=== PATIENT | male | born 2000 | race Caucasian/White ===

== ENCOUNTER 2018-02-23 13:30 | Emergency (ER) | payer BC ==
--- NOTE | 2018-02-23 15:31 | RAD REPORT ---
EXAM DESCRIPTION: RAD - Chest Single View - 02/23/2018 3:26 pm CLINICAL HISTORY: Pneumonia Chest pain. COMPARISON: No comparisons FINDINGS: Portable technique limits examination quality. The lungs are grossly clear. The heart is normal in size. No displaced fractures. IMPRESSION: No acute intrathoracic process suspected.
[2018-02-23 15:36] LABS: Absolute Lymphocytes (CBC) 1.9 K/uL (0.7-4.9); Absolute Monocytes 0.7 K/uL (0.1-1.3); Absolute Neutrophil 6.3 K/uL (1.8-8.0); Basophils % 0.9 % (0-1.3); Eosinophils % 1.5 % (0-4.4); Hematocrit 48.2 % (39.6-49.0); Lymphocytes % 21.1 % (15.3-44.8); MCH 27.5 pg (27.0-35.0); MCV 81.7 fL (80-100); MPV 9.9 fL (7.6-11.3); Monocytes % 7.9 % (3.3-12.3); RBC Red Blood Cell Count 5.91 M/uL (4.33-5.43)
[2018-02-23 15:57] LABS: BUN Blood Urea Nitrogen 16 mg/dL (7-18); Bicarbonate 28 mmol/L (21-32); Glucose Level 92 mg/dL (74-106); Magnesium 2.2 mg/dL (1.8-2.4); NT PRO-BNP 63 pg/mL (<125); Potassium 4.4 mmol/L (3.5-5.1); Sodium Level 137 mmol/L (136-145); Troponin (Emerg Dept Use Only) < 0.02 ng/mL (0.0-0.045)
--- NOTE | 2018-02-23 17:17 | ER ---
Nurse's Notes [facility] Name: Km Correa Age: 17 yrs Sex: Male : 2000 Arrival Date: 02/23/2018 Time: 13:31 Bed 27 Private MD: Kae De La Cruz Diagnosis: Chest pain, unspecified-musculoskeletal Presentation: 02/23 13:30 Presenting complaint: Patient states: right sided chest pain that is okay at rest but tl3 goes to a ten with movement, right shoulder pain as well. Pt was spraying for mosquitos yesterday with a professional strength pesticide. Transition of care: patient was not received from another setting of care. Onset of symptoms. Onset of symptoms was February 23, 2018. Risk Assessment: Do you want to hurt yourself or someone else? Patient reports no desire to harm self or others. Initial Sepsis Screen: Does the patient meet any 2 criteria? No. Patient's initial sepsis screen is negative. Does the patient have a suspected source of infection? No. Patient's initial sepsis screen is negative. Care prior to arrival: None. 13:30 Method Of Arrival: Ambulatory tl3 13:30 Acuity: SAMEER 3 tl3 Triage Assessment: 14:54 General: Appears uncomfortable, obese, well groomed, well developed, well nourished, tl3 Behavior is calm, cooperative, appropriate for age. Pain: Complains of pain in right sided chest and shoulder pain. EENT: No signs and/or symptoms were reported regarding the EENT system. Neuro: Level of Consciousness is awake, alert, obeys commands, Oriented to person, place, time, situation, Appropriate for age. Cardiovascular: Heart tones S1 S2 present Patient's skin is warm and dry. Respiratory: Airway is patent Respiratory effort is even, unlabored, Respiratory pattern is regular, symmetrical, Breath sounds are clear bilaterally. GI: No signs and/or symptoms were reported involving the gastrointestinal system. : No signs and/or symptoms were reported regarding the genitourinary system. Derm: No signs and/or symptoms reported regarding the dermatologic system. Musculoskeletal: No signs and/or symptoms reported regarding the musculoskeletal system. Historical: - Allergies: 14:54 No Known Allergies; tl3 - Immunization history:: Adult Immunizations Adult Immunizations up to date. - Social history:: Smoking status: Patient/guardian denies using tobacco, never smoked. - Ebola Screening: : No symptoms or risks identified at this time. Screenin:09 Abuse screen: Denies threats or abuse. Denies injuries from another. Nutritional mg2 screening: No deficits noted. Tuberculosis screening: No symptoms or risk factors identified. Fall Risk IV access (20 points). Assessment: 14:58 Reassessment: No changes from previously documented assessment. no needs at this time. tl3 15:12 General: Appears in no apparent distress. comfortable, Behavior is calm, cooperative. mg2 Pain: Complains of pain in chest Pain does not radiate. Pain Quality of pain is described as aching. Neuro: Level of Consciousness is awake, alert, obeys commands, Oriented to person, place, time, situation, Appropriate for age. Cardiovascular: Capillary refill < 3 seconds Patient's skin is warm and dry. Respiratory: Airway is patent Respiratory effort is even, unlabored, Respiratory pattern is regular, symmetrical. GI: No signs and/or symptoms were reported involving the gastrointestinal system. : No signs and/or symptoms were reported regarding the genitourinary system. EENT: No signs and/or symptoms were reported regarding the EENT system. Derm: Skin is intact, Skin is pink, warm \T\ dry. normal. Musculoskeletal: Circulation, motion, and sensation intact. 17:29 Reassessment: Patient appears in no apparent distress at this time. Patient and/or mg2 family updated on plan of care and expected duration. Pain level reassessed. Patient is alert, oriented x 3, equal unlabored respirations, skin warm/dry/pink. Vital Signs: 14:54 BP 111 / 67; Pulse 86; Resp 18; Temp 98.1; Pulse Ox 98% ; Weight 125 kg; Height 5 ft. tl3 10 in. (177.80 cm); 14:58 BP 120 / 72; Pulse 78; Resp 18; Pulse Ox 99% on R/A; tl3 15:52 BP 123 / 73; Pulse 72; Resp 18; Pulse Ox 100% on R/A; mg2 17:29 BP 123 / 78; Pulse 78; Resp 18; Pulse Ox 100% on R/A; Pain 2/10; mg2 14:54 Body Mass Index 39.54 (125.00 kg, 177.80 cm) tl3 ED Course: 13:31 Patient arrived in ED. 13:31 Kae De La Cruz MD is Private Physician. ch 14:08 Skye Ventura FNP-C is [facility]. kb 14:08 Edy Conde MD is Attending Physician. kb 14:51 Amena Maravilla, RN is Primary Nurse. tl3 14:53 Triage completed. tl3 14:54 Arm band placed on right wrist. tl3 15:02 EKG done, by operations and maintenance technician. reviewed by Skye MCCLAIN. sm3 15:12 Patient has correct armband on for positive identification. monitoring engineer on. Pulse mg2 ox on. NIBP on. Door closed. Noise minimized. 15:12 No provider procedures requiring assistance completed. Inserted saline lock: 20 gauge mg2 in right antecubital area, using aseptic technique. Blood collected. 15:21 X-ray completed. Portable x-ray completed in exam room. Patient tolerated procedure ag1 well. 17:29 IV discontinued, intact, bleeding controlled, No redness/swelling at site. Pressure mg2 dressing applied. Administered Medications: No medications were administered Outcome: 17:17 Discharge ordered by MD. kb 17:29 Discharged to home ambulatory, with family. mg2 17:29 Condition: stable 17:29 Discharge instructions given to patient, family, Instructed on discharge instructions, follow up and referral plans. medication usage, Demonstrated understanding of instructions, follow-up care, medications, Prescriptions given X 1. 17:30 Patient left the ED. mg2 Signatures: Skye Ventura FNP-C FNP-Ckb Hammond, Christina, RN RN Nova Peters ag1 Amena Maravilla, RN RN tl3 Maximus Kay RN RN mg2 Yaima Hurley sm3 Corrections: (The following items were deleted from the chart) 14:55 13:30 Presenting complaint: Patient states: right sided chest pain that is okay at rest tl3 but goes to a ten with movement, right shoulder pain as well tl3 14:55 13:30 Initial Sepsis Screen: Does the patient meet any 2 criteria? No. Patient's tl3 initial sepsis screen is negative. Does the patient have a suspected source of infection? No. Patient's initial sepsis screen is negative. tl3
--- NOTE | 2018-02-23 17:17 | EDPHYS ---
Physician Documentation [facility] Name: Km Correa Age: 17 yrs Sex: Male : 2000 Arrival Date: 02/23/2018 Time: 13:31 Bed 27 Private MD: Kae De La Cruz ED Physician Edy Conde HPI: 02/23 17:20 This 17 yrs old Male presents to ER via Ambulatory with complaints of Chest kb Congestion. 17:20 The patient or guardian reports chest pain that is located primarily in the anterior kb chest wall, right. The pain radiates to the right arm. Associated signs and symptoms: The patient has no apparent associated signs or symptoms. The chest pain is described as aching. Duration: The patient or guardian reports a single episode. Modifying factors: the symptoms are aggravated by movement. Severity of pain: At its worst the pain was moderate in the emergency department the pain is unchanged. The patient has not experienced similar symptoms in the past. The patient has not recently seen a physician. Historical: - Allergies: 14:54 No Known Allergies; tl3 - Immunization history:: Adult Immunizations Adult Immunizations up to date. - Social history:: Smoking status: Patient/guardian denies using tobacco, never smoked. - Ebola Screening: : No symptoms or risks identified at this time. ROS: 17:19 Constitutional: Negative for fever, chills, and weight loss, Respiratory: Negative for kb shortness of breath, cough, wheezing, and pleuritic chest pain, Abdomen/GI: Negative for abdominal pain, nausea, vomiting, diarrhea, and constipation, Back: Negative for injury and pain, : Negative for injury, bleeding, discharge, and swelling, MS/Extremity: Negative for injury and deformity, Skin: Negative for injury, rash, and discoloration, Neuro: Negative for headache, weakness, numbness, tingling, and seizure. 17:19 Cardiovascular: Positive for chest pain, with movement, of the anterior aspect of right upper chest, Negative for edema, orthopnea, palpitations, paroxysmal nocturnal dyspnea. Exam: 17:19 Constitutional: This is a well developed, well nourished patient who is awake, alert, kb and in no acute distress. Head/Face: Normocephalic, atraumatic. Chest/axilla: Normal chest wall appearance and motion. Nontender with no deformity. No lesions are appreciated. Cardiovascular: Regular rate and rhythm with a normal S1 and S2. No gallops, murmurs, or rubs. Normal PMI, no JVD. No pulse deficits. Respiratory: Lungs have equal breath sounds bilaterally, clear to auscultation and percussion. No rales, rhonchi or wheezes noted. No increased work of breathing, no retractions or nasal flaring. Abdomen/GI: Soft, non-tender, with normal bowel sounds. No distension or tympany. No guarding or rebound. No evidence of tenderness throughout. Skin: Warm, dry with normal turgor. Normal color with no rashes, no lesions, and no evidence of cellulitis. MS/ Extremity: Pulses equal, no cyanosis. Neurovascular intact. Full, normal range of motion. Neuro: Awake and alert, GCS 15, oriented to person, place, time, and situation. Cranial nerves II-XII grossly intact. Motor strength 5/5 in all extremities. Sensory grossly intact. Cerebellar exam normal. Normal gait. Vital Signs: 14:54 BP 111 / 67; Pulse 86; Resp 18; Temp 98.1; Pulse Ox 98% ; Weight 125 kg; Height 5 ft. tl3 10 in. (177.80 cm); 14:58 BP 120 / 72; Pulse 78; Resp 18; Pulse Ox 99% on R/A; tl3 15:52 BP 123 / 73; Pulse 72; Resp 18; Pulse Ox 100% on R/A; mg2 17:29 BP 123 / 78; Pulse 78; Resp 18; Pulse Ox 100% on R/A; Pain 2/10; mg2 14:54 Body Mass Index 39.54 (125.00 kg, 177.80 cm) tl3 MDM: 14:08 Patient medically screened. kb 17:20 Data reviewed: vital signs, nurses notes. Data interpreted: Pulse oximetry: on room air kb is 100 %. Interpretation: normal. Counseling: I had a detailed discussion with the patient and/or guardian regarding: the historical points, exam findings, and any diagnostic results supporting the discharge/admit diagnosis, lab results, radiology results, the need for outpatient follow up, a family practitioner, to return to the emergency department if symptoms worsen or persist or if there are any questions or concerns that arise at home. 02/23 14:23 Order name: Basic Metabolic Panel kb 02/23 14:23 Order name: CBC with Diff kb 02/23 14:23 Order name: Magnesium kb 02/23 14:23 Order name: NT PRO-BNP kb 02/23 14:23 Order name: Troponin (emerg Dept Use Only) kb 02/23 15:45 Order name: CBC with Automated Diff; Complete Time: 15:50 EDMS 02/23 14:23 Order name: XRAY Chest (1 view) kb 02/23 14:23 Order name: Cardiac monitoring; Complete Time: 15:02 kb 02/23 15:41 Order name: RAD; Complete Time: 15:44 EDMS 02/23 15:57 Order name: Basic Metabolic Panel; Complete Time: 16:01 EDMS 02/23 15:57 Order name: Troponin (Emerg Dept Use Only); Complete Time: 16:01 EDMS 02/23 15:57 Order name: NT PRO-BNP; Complete Time: 16:01 EDMS 02/23 15:58 Order name: Magnesium; Complete Time: 16:01 EDMS 02/23 14:23 Order name: EKG - Nurse/Tech; Complete Time: 15:02 kb 02/23 14:23 Order name: IV Saline Lock; Complete Time: 15:02 kb 02/23 14:23 Order name: Labs collected and sent; Complete Time: 15:02 kb 02/23 14:23 Order name: O2 Per Protocol; Complete Time: 15:02 kb 02/23 14:23 Order name: O2 Sat Monitoring; Complete Time: 15:02 kb Administered Medications: No medications were administered Disposition: 17:57 Co-signature as Attending Physician, Edy Conde MD. rn Disposition: 02/23/18 17:17 Discharged to Home. Impression: Chest pain, unspecified - musculoskeletal. - Condition is Stable. - Discharge Instructions: Chest Wall Pain, [id number], Nonspecific Chest Pain, [id number]. - Prescriptions for Cyclobenzaprine 10 mg Oral Tablet - take 1 tablet by ORAL route every 8 hours As needed; 21 tablet. - Medication Reconciliation Form, Thank You Letter, Antibiotic Education, Prescription Opioid Use form. - Follow up: Emergency Department; When: As needed; Reason: Worsening of condition. Follow up: Private Physician; When: 2 - 3 days; Reason: Recheck today's complaints, Continuance of care, Re-evaluation by your physician. Signatures: Dispatcher [employer] EDSkye Menon, PALEOLOGIST-C PALEOLOGIST-Ckb Edy Conde MD MD rn Lowrey, Tammy RN RN tl3 Maximus Kay, RN RN mg2 Corrections: (The following items were deleted from the chart) 17:30 17:17 02/23/2018 17:17 Discharged to Home. Impression: Chest pain, unspecified - mg2 musculoskeletal. Condition is Stable. Forms are Medication Reconciliation Form, Thank You Letter, Antibiotic Education, Prescription Opioid Use. Follow up: Emergency Department; When: As needed; Reason: Worsening of condition. Follow up: Private Physician; When: 2 - 3 days; Reason: Recheck today's complaints, Continuance of care, Re-evaluation by your physician. kb
--- NOTE | 2018-02-25 06:59 | EKG ---
Test Date: 2018-02-23 Test Time: 14:56:21 Leak Gang Supervisor: YULIA MEASUREMENT RESULTS: Intervals: Rate: 69 FL: 150 QRSD: 98 QT: 372 QTc: 398 [place]: P: -4 FL: 150 QRS: -11 T: -8 INTERPRETIVE STATEMENTS: Sinus rhythm with marked sinus arrhythmia Minimal voltage criteria for LVH, may be normal variant Borderline ECG Compared to ECG 02/14/2014 14:50:01 Left ventricular hypertrophy now present Sinus bradycardia no longer present Left bundle-branch block no longer present Electronically Signed On 02-25-18 06:55:23 CDT by Bernardo Carey
== END 2018-02-23 17:30 | disposition home or self-care (01) ==
LOC: ER 13:30
DX: R07.89 Other chest pain (principal)
CPT/HCPCS: 36415; 71045; 80048; 83735; 83880; 84484; 85025; 93005; 99284

== ENCOUNTER 2019-08-21 05:06 | Emergency (ER) | payer BC ==
--- NOTE | 2019-08-21 06:24 | EDPHYS ---
Physician Documentation [facility] Name: Km Correa Age: 19 yrs Sex: Male : 2000 Arrival Date: 08/21/2019 Time: 05:07 Bed 5 Private MD: ED Physician Valentino Mott HPI: 08/20 06:05 This 19 yrs old Male presents to ER via Ambulatory with complaints of tw4 Abdominal Pain, Congestion. 06:05 The patient or guardian reports cough. Onset: The symptoms/episode began/occurred tw4 today. Severity of symptoms: At their worst the symptoms were moderate, in the emergency department the symptoms are unchanged. The patient has not experienced similar symptoms in the past. Historical: - Allergies: 05:15 No Known Allergies; rr5 - Home Meds: 05:15 None [Active]; rr5 - PMHx: 05:15 None; rr5 - PSHx: 05:15 None; rr5 - Immunization history:: Adult Immunizations up to date. - Social history:: Smoking status: unknown Patient uses alcohol, but reports only rare drinking. Patient/guardian denies using street drugs. ROS: 06:05 Back: Negative for injury and pain, MS/Extremity: Negative for injury and deformity, tw4 Skin: Negative for injury, rash, and discoloration. 06:05 Constitutional: Positive for body aches, malaise. 06:05 Cardiovascular: Positive for 06:05 Respiratory: Positive for cough. 06:05 Abdomen/GI: Positive for abdominal pain. Exam: 06:05 Constitutional: This is a well developed, well nourished patient who is awake, alert, tw4 and in no acute distress. Head/Face: Normocephalic, atraumatic. Chest/axilla: Normal chest wall appearance and motion. Nontender with no deformity. No lesions are appreciated. Cardiovascular: Regular rate and rhythm with a normal S1 and S2. No gallops, murmurs, or rubs. Normal PMI, no JVD. No pulse deficits. Respiratory: Lungs have equal breath sounds bilaterally, clear to auscultation and percussion. No rales, rhonchi or wheezes noted. No increased work of breathing, no retractions or nasal flaring. Back: No spinal tenderness. No costovertebral tenderness. Full range of motion. MS/ Extremity: Pulses equal, no cyanosis. Neurovascular intact. Full, normal range of motion. Neuro: Awake and alert, GCS 15, oriented to person, place, time, and situation. Cranial nerves II-XII grossly intact. Motor strength 5/5 in all extremities. Sensory grossly intact. Cerebellar exam normal. Normal gait. 06:05 Abdomen/GI: Inspection: abdomen appears normal, Bowel sounds: normal, Palpation: mild abdominal tenderness, in the epigastric area. Vital Signs: 05:15 BP 135 / 64; Pulse 62; Resp 19; Temp 98.2; Pulse Ox 99% ; Weight 129.27 kg; Height 5 rr5 ft. 11 in. (180.34 cm); Pain 5/10; 06:30 BP 116 / 55; Pulse 64; Resp 18 S; Pulse Ox 99% on R/A; bb 05:15 Body Mass Index 39.75 (129.27 kg, 180.34 cm) rr5 MDM: 05:13 Patient medically screened. tw4 06:22 Differential Diagnosis: Obstructed Airway Bronchitis Influenza. Data reviewed: vital tw4 signs, nurses notes. Data interpreted: Pulse oximetry: Interpretation: normal. Counseling: I had a detailed discussion with the patient and/or guardian regarding: the historical points, exam findings, and any diagnostic results supporting the discharge/admit diagnosis. Special discussion: I discussed with the patient/guardian in detail that at this point there is no indication for admission to the hospital. It is understood, however, that if the symptoms persist or worsen the patient needs to return immediately for re-evaluation. 08/20 05:32 Order name: Flu; Complete Time: 06:22 tw4 08/20 06:22 Interpretation: Within normal limits. tw4 08/20 05:32 Order name: Strep; Complete Time: 06:10 tw4 08/20 06:10 Interpretation: Within normal limits. tw4 08/20 06:09 Order name: Throat Culture EDMS Administered Medications: No medications were administered Disposition: 08/21/19 06:23 Discharged to Home. Impression: Acute upper respiratory infection, unspecified. - Condition is Stable. - Discharge Instructions: Viral Respiratory Infection, Cool Mist Vaporizer, Viral Respiratory Infection, [id number]. - Prescriptions for Ibuprofen 800 mg Oral Tablet - take 1 tablet by ORAL route every 8 hours As needed take with food; 30 tablet. Tessalon Perles 100 mg Oral Capsule - take 1 capsule by ORAL route every 8 hours As needed; 15 capsule. - Work release form, Medication Reconciliation Form, Thank You Letter, Antibiotic Education, Prescription Opioid Use form. - Follow up: Private Physician; When: Upon discharge from the Emergency Department; Reason: Recheck today's complaints, Continuance of care, Re-evaluation by your physician. - Problem is new. - Symptoms have improved. Signatures: Dispatcher [employer] EDKY Vivian Deutsch RN RN bb Valentnio Mott MD MD tw4 Armond Carpenter RN RN rr5 Corrections: (The following items were deleted from the chart) 06:32 06:23 08/21/2019 06:23 Discharged to Home. Impression: Acute upper respiratory bb infection, unspecified. Condition is Stable. Forms are Medication Reconciliation Form, Thank You Letter, Antibiotic Education, Prescription Opioid Use. Follow up: Private Physician; When: Upon discharge from the Emergency Department; Reason: Recheck today's complaints, Continuance of care, Re-evaluation by your physician. Problem is new. Symptoms have improved. tw4
--- NOTE | 2019-08-21 06:24 | ER ---
Nurse's Notes [facility] Name: Km Correa Age: 19 yrs Sex: Male : 2000 Arrival Date: 08/21/2019 Time: 05:07 Bed 5 Private MD: Diagnosis: Acute upper respiratory infection, unspecified Presentation: 08/20 05:15 Chief complaint: Patient states: I have congestion and abdominal pain started last rr5 Wednesday, now its getting worse. 05:15 Coronavirus screen: The patient has NOT traveled to a country currently being monitored rr5 by the [facility] within the last 14 days. Proceed with normal triage procedures. Ebola Screen: Patient negative for fever greater than or equal to 101.5 degrees Fahrenheit, and additional compatible Ebola Virus Disease symptoms Patient denies exposure to infectious person. Patient denies travel to an Ebola-affected area in the 21 days before illness onset. Initial Sepsis Screen: Does the patient meet any 2 criteria? No. Patient's initial sepsis screen is negative. Does the patient have a suspected source of infection? No. Patient's initial sepsis screen is negative. Risk Assessment: Do you want to hurt yourself or someone else? Patient reports no desire to harm self or others. 05:15 Method Of Arrival: Ambulatory rr5 05:15 Acuity: SAMEER 4 rr5 06:32 Onset of symptoms was August 19, 2019. bb Historical: - Allergies: 05:15 No Known Allergies; rr5 - Home Meds: 05:15 None [Active]; rr5 - PMHx: 05:15 None; rr5 - PSHx: 05:15 None; rr5 - Immunization history:: Adult Immunizations up to date. - Social history:: Smoking status: unknown Patient uses alcohol, but reports only rare drinking. Patient/guardian denies using street drugs. Screenin:15 Abuse screen: Denies threats or abuse. Denies injuries from another. Nutritional rr5 screening: No deficits noted. Tuberculosis screening: No symptoms or risk factors identified. Fall Risk None identified. Assessment: 05:15 General: Appears in no apparent distress. comfortable, Behavior is calm, cooperative, rr5 appropriate for age. 05:15 Pain: Complains of pain in abdomen Pain does not radiate. Pain currently is 5 out of 10 rr5 on a pain scale. Quality of pain is described as aching, Pain began gradually, Is intermittent. Neuro: Level of Consciousness is awake, alert, obeys commands, Oriented to person, place, time, situation, Appropriate for age. Cardiovascular: Capillary refill < 3 seconds Patient's skin is warm and dry. Respiratory: Reports cough that is congestion Airway is patent Respiratory effort is even, unlabored, Respiratory pattern is regular, symmetrical. GI: Abdomen is round Bowel sounds present X 4 quads. Abd is soft and non tender X 4 quads. Reports lower abdominal pain, upper abdominal pain, vomiting. : No signs and/or symptoms were reported regarding the genitourinary system. EENT: Reports pain in throat. Derm: Skin is intact, is healthy with good turgor, Skin temperature is warm. Musculoskeletal: Circulation, motion, and sensation intact. Capillary refill < 3 seconds. 05:40 Reassessment: Patient appears in no apparent distress at this time. ED provider order rr5 for medical screen. registration staff came and explained the process. Charge nurse informed and spoke to patient. 06:30 Reassessment: Patient is alert, oriented x 3, equal unlabored respirations, skin bb warm/dry/pink. pt verbalized understanding of and agrees to plan of care discharge instructions given pt ambulated with steady gait to exit. Vital Signs: 05:15 BP 135 / 64; Pulse 62; Resp 19; Temp 98.2; Pulse Ox 99% ; Weight 129.27 kg; Height 5 rr5 ft. 11 in. (180.34 cm); Pain 5/10; 06:30 BP 116 / 55; Pulse 64; Resp 18 S; Pulse Ox 99% on R/A; bb 05:15 Body Mass Index 39.75 (129.27 kg, 180.34 cm) rr5 ED Course: 05:07 Patient arrived in ED. cl3 05:08 Armond Carpenter, TRI is Primary Nurse. rr5 05:13 Valentino Mott MD is Attending Physician. tw4 05:15 Arm band placed on right wrist. rr5 05:19 Triage completed. rr5 05:20 Patient has correct armband on for positive identification. Placed in gown. Bed in low rr5 position. Call light in reach. Pulse ox on. NIBP on. 05:47 Flu and/or RSV swab sent to lab. Strep swab sent to lab. rr5 06:31 No provider procedures requiring assistance completed. Patient did not have IV access bb during this emergency room visit. Administered Medications: No medications were administered Outcome: : Discharge ordered by . leonel : Discharged to home ambulatory. bb : Condition: stable 06:31 Discharge instructions given to patient, Instructed on discharge instructions, follow up and referral plans. medication usage, Demonstrated understanding of instructions, follow-up care, medications, Prescriptions given X 2. 06:32 Patient left the ED. bb Signatures: Vivian Deutsch, RN RN bb Valentino Mott MD MD tw4 Armond Carpenter RN RN rr5 Pepe Kimball cl3
[2019-08-21 06:40] VITALS: TEMP 98.2; O2SAT 99
[2019-08-21 06:42] VITALS: BP 116/55
== END 2019-08-21 06:32 | disposition home or self-care (01) ==
LOC: ER 05:06
DX: J06.9 Acute upper respiratory infection, unspecified (principal)
CPT/HCPCS: 87070; 87081; 87804; 99283

== ENCOUNTER 2021-02-09 07:00 | Emergency (ER) | payer BC ==
--- OUTSIDE RECORDS SUMMARY | 2021-02-09 07:02 | XMS REPORT | Continuity of Care Document ---
:2000 Author Organization [facility] t Address [address] [place] [place] [address] Care Team Providers Name Role Phone Unavailable Unavailable Unavailable Problems This patient has no known problems. Allergies, Adverse Reactions, Alerts This patient has no known allergies or adverse reactions. Medications This patient has no known medications. Procedures This patient has no known procedures. Encounters Start End Encounter Admission Attending Care Care Encounter Source Date/Time Date/Time Type Type Clinicians Facility Department ID 2020-10-02 2020-10-02 Outpatient [facility] [id number] [facility] - [facility] ent Clinics 2020-09-11 2020-09-11 Outpatient [facility] [id number] [facility] ent Clinics Results This patient has no known results.
[2021-02-09] MEDS ORDERED: ONDANSETRON 4 MG/2 ML VIAL ONE (08:36)
[2021-02-09] MEDS ORDERED: KETOROLAC 30 MG/ML INJ ONE (08:36)
[2021-02-09 08:45] LABS: Absolute Lymphocytes (CBC) 1.5 K/uL (0.7-4.9); Basophils % 0.4 % (0-1.3); Hematocrit 46.8 % (39.6-49.0); Lymphocytes % 14.1 % (15.3-44.8); MPV 9.1 fL (7.6-11.3); RBC Red Blood Cell Count 5.76 M/uL (4.33-5.43)
[2021-02-09 08:48] LABS: BUN Blood Urea Nitrogen 17 mg/dL (7-18); Bicarbonate 27 mmol/L (21-32); Glucose Level 102 mg/dL (74-106); Sodium Level 140 mmol/L (136-145)
--- NOTE | 2021-02-09 08:56 | RAD REPORT ---
EXAM DESCRIPTION: CT - Head Brain Wo Cont - 02/09/2021 8:44 am CLINICAL HISTORY: HEADACHE COMPARISON: No comparisons TECHNIQUE: All CT scans are performed using dose optimization technique as appropriate and may inclu de automated exposure control or mA/KV adjustment according to patient size. FINDINGS: No intracranial hemorrhage, hydrocephalus or extra-axial fluid collection.No areas of brai n edema or evidence of midline shift. The paranasal sinuses and mastoids are clear. The calvarium is intact. IMPRESSION: No acute intracranial abnormality.
--- NOTE | 2021-02-09 15:33 | ER ---
Nurse's Notes [facility] Name: Km Correa Age: 20 yrs Sex: Male : 2000 Arrival Date: 02/09/2021 Time: 07:01 Bed 27 Private MD: Steve Quigley Diagnosis: Headache Presentation: 02/09 07:43 Chief complaint: Patient states: migraine x 4 days ago. Pt states "when I wake up in aa5 the mornings the whole left side of my body feels numb and hard to move". Pt ambulatory with steady gait to triage. Pt reports nausea/vomiting. Coronavirus screen: headache. Ebola Screen: Patient negative for fever greater than or equal to 101.5 degrees Fahrenheit, and additional compatible Ebola Virus Disease symptoms. Initial Sepsis Screen: Does the patient meet any 2 criteria? No. Patient's initial sepsis screen is negative. Does the patient have a suspected source of infection? No. Patient's initial sepsis screen is negative. Risk Assessment: Do you want to hurt yourself or someone else? Patient reports no desire to harm self or others. Onset of symptoms was February 05, 2021. 07:43 Method Of Arrival: Ambulatory aa5 07:43 Acuity: SAMEER 3 aa5 Triage Assessment: 07:50 Headache History: The patient has had previous headaches and this one is similar to bp previous episodes. General: Appears in no apparent distress. uncomfortable, Behavior is cooperative, appropriate for age, anxious. Pain: Complains of pain in head Pain currently is 10 out of 10 on a pain scale. Pain began 2-3 days ago. Also complains of photophobia. EENT: No deficits noted. Neuro: Level of Consciousness is awake, alert, obeys commands, Oriented to Appropriate for age Moves all extremities. Full function Gait is steady, Speech is normal, Reports paresthesias in right arm and right leg. Cardiovascular: No deficits noted. Respiratory: No deficits noted. GI: No signs and/or symptoms were reported involving the gastrointestinal system. : No signs and/or symptoms were reported regarding the genitourinary system. Derm: No deficits noted. Musculoskeletal: No deficits noted. Historical: - Allergies: 07:45 No Known Allergies; aa5 - Home Meds: 07:45 None [Active]; aa5 - PMHx: 07:45 Migraine; aa5 - PSHx: 07:45 None; aa5 - Immunization history:: Client reports having NOT received the Covid vaccine. - Social history:: Smoking status: Reported history of juuling and/or vaping. Screenin:50 Abuse screen: Denies threats or abuse. Denies injuries from another. Nutritional bp screening: No deficits noted. Tuberculosis screening: No symptoms or risk factors identified. Fall Risk None identified. Assessment: 07:50 General: SEE TRIAGE NOTE. bp Vital Signs: 07:43 BP 114 / 74; Pulse 62; Resp 16 S; Temp 97.4(TE); Pulse Ox 100% on R/A; Weight 129.27 kg aa5 (R); Height 5 ft. 11 in. (180.34 cm) (R); Pain 8/10; 07:43 Body Mass Index 39.75 (129.27 kg, 180.34 cm) aa5 ED Course: 07:01 Patient arrived in ED. as 07:01 Steve Quigley DO is Private Physician. as 07:43 Arm band placed on. aa5 07:45 Triage completed. aa5 07:46 Graciela Quigley MD is Attending Physician. sp3 07:49 Dhiraj Vallejo, TRI is Primary Nurse. bp 07:50 Patient has correct armband on for positive identification. Bed in low position. Call bp light in reach. Side rails up X2. 08:20 Inserted saline lock: 20 gauge in right antecubital area, using aseptic technique. bp Blood collected. 15:41 CT Head Brain wo Cont In Process Unspecified. EDMS Administered Medications: 08:20 Drug: Zofran (Ondansetron) 4 mg Route: IVP; Site: right antecubital; bp 08:20 Drug: Ketorolac 30 mg Route: IVP; Site: right antecubital; bp Outcome: 12:40 Discharge ordered by . sp3 12:41 Patient left the ED. iw Signatures: Dispatcher [employer] EDMS Magy Ornelas Irene, RN RN Kadie Martinez RN RN aa5 Dhiraj Vallejo, TRI [place]TT bp Graciela Quigley MD MD sp3
--- NOTE | 2021-02-09 15:34 | EDPHYS ---
Physician Documentation [facility] Name: Km Correa Age: 20 yrs Sex: Male : 2000 Arrival Date: 02/09/2021 Time: 07:01 Bed 27 Private MD: Dann [facility] ED Physician Graciela Quigley HPI: 02/09 08:00 This 20 yrs old Male presents to ER via Ambulatory with complaints of sp3 Headache > 24hrs Old, Numbness - l side, Nausea/Vomiting. 08:00 20-year-old male with no past medical history presents with a 4-day history of headache sp3 after taking an energy drink. Patient states that his headache is off and on and also has left-sided numbness and weakness in his body. However patient has been able to ambulate without difficulty and has had no changes to his ADLs. On review of systems, patient reports no fever, insect or tick bites, loss of taste or smell, URI symptoms, fever, neck pain, throat pain, chest pain, shortness of breath, back pain, abdominal pain, vomiting or diarrhea, lower extremity pain, syncope, near syncope, loss of proprioception, any other ROS at this time. Patient has had Covid in the past. Patient does state he has mild nausea. Patient prior to arrival was taken Excedrin and Tylenol which has not significantly helped.. Historical: - Allergies: 07:45 No Known Allergies; aa5 - Home Meds: 07:45 None [Active]; aa5 - PMHx: 07:45 Migraine; aa5 - PSHx: 07:45 None; aa5 - Immunization history:: Client reports having NOT received the Covid vaccine. - Social history:: Smoking status: Reported history of juuling and/or vaping. ROS: 08:03 Eyes: Negative for injury, pain, redness, and discharge, ENT: Negative for injury, sp3 pain, and discharge, Neck: Negative for injury, pain, and swelling, Cardiovascular: Negative for chest pain, palpitations, and edema, Respiratory: Negative for shortness of breath, cough, wheezing, and pleuritic chest pain, Back: Negative for injury and pain, MS/Extremity: Negative for injury and deformity, Skin: Negative for injury, rash, and discoloration. 08:03 All other systems are negative. Exam: 08:04 Constitutional: This is a well developed, well nourished patient who is awake, alert, sp3 and in no acute distress. Head/Face: Normocephalic, atraumatic. Eyes: Pupils equal round and reactive to light, extra-ocular motions intact. Lids and lashes normal. Conjunctiva and sclera are non-icteric and not injected. Cornea within normal limits. Periorbital areas with no swelling, redness, or edema. ENT: Nares patent. No nasal discharge, no septal abnormalities noted. External auditory canals are clear. Oropharynx with no redness, swelling, or masses, exudates, or evidence of obstruction, uvula midline. Mucous membranes moist. Neck: Trachea midline, no thyromegaly or masses palpated, and no cervical lymphadenopathy. Supple, full range of motion without nuchal rigidity, or vertebral point tenderness. No Meningismus. Chest/axilla: Normal chest wall appearance and motion. Nontender with no deformity. No lesions are appreciated. Cardiovascular: Regular rate and rhythm with a normal S1 and S2. No gallops, murmurs, or rubs. Normal PMI, no JVD. No pulse deficits. Respiratory: Lungs have equal breath sounds bilaterally, clear to auscultation and percussion. No rales, rhonchi or wheezes noted. No increased work of breathing, no retractions or nasal flaring. Abdomen/GI: Soft, non-tender, with normal bowel sounds. No distension or tympany. No guarding or rebound. No evidence of tenderness throughout. Back: No spinal tenderness. No costovertebral tenderness. Full range of motion. Skin: Warm, dry with normal turgor. Normal color with no rashes, no lesions, and no evidence of cellulitis. MS/ Extremity: Pulses equal, no cyanosis. Neurovascular intact. Full, normal range of motion. Neuro: Awake and alert, GCS 15, oriented to person, place, time, and situation. Cranial nerves II-XII grossly intact. Motor strength 5/5 in all extremities. Sensory grossly intact. Cerebellar exam normal. Normal gait. Psych: Awake, alert, with orientation to person, place and time. Behavior, mood, and affect are within normal limits. Vital Signs: 07:43 BP 114 / 74; Pulse 62; Resp 16 S; Temp 97.4(TE); Pulse Ox 100% on R/A; Weight 129.27 kg aa5 (R); Height 5 ft. 11 in. (180.34 cm) (R); Pain 8/10; 07:43 Body Mass Index 39.75 (129.27 kg, 180.34 cm) aa5 MDM: 07:46 Patient medically screened. sp3 08:04 Data reviewed: vital signs, nurses notes. ED course: 20-year-old male with headache and sp3 subjective neuro symptoms for 4 days. No objective neuro findings today including motor, sensory, gait, proprioception, cranial nerves, mental status, memory, cognition, any other neuro deficits. Will obtain CT scan of the head and basic laboratory values and administer ketorolac IV and Zofran IV. If no findings on work-up, will discharge patient to PCP and neuro for any continued work-up as needed. I am not highly suspicious of intracranial hemorrhage or any other emergency at this time.. 12:40 ED course: CT scan is negative and labs were normal. Patient felt better after Toradol. sp3 Patient was discharged on ketorolac Rx and told to follow-up with Dr. Moss. This happened during downtime and discharge was done by paper chart.. 02/09 07:59 Order name: Basic Metabolic Panel sp3 02/09 07:59 Order name: CBC with Diff sp3 02/09 07:59 Order name: IV Saline Lock; Complete Time: 08:28 sp3 02/09 07:59 Order name: CT Head Brain wo Cont sp3 02/09 07:59 Order name: Labs collected and sent; Complete Time: 08:28 sp3 Administered Medications: 08:20 Drug: Zofran (Ondansetron) 4 mg Route: IVP; Site: right antecubital; bp 08:20 Drug: Ketorolac 30 mg Route: IVP; Site: right antecubital; bp Disposition Summary: 02/09/21 12:40 Discharge Ordered Location: Home sp3 Condition: Stable sp3 Diagnosis - Headache sp3 Forms: - Medication Reconciliation Form sp3 - Thank You Letter sp3 - Antibiotic Education sp3 - Prescription Opioid Use sp3 Signatures: Dispatcher [employer] EDMS Kadie Martinez RN RN aa5 Dhiraj Vallejo RN RN bp Quigley, Setul, MD MD sp3
[2021-02-09 16:57] VITALS: BP 114/74; TEMP 97.4; O2SAT 100
== END 2021-02-09 12:41 | disposition home or self-care (01) ==
LOC: ER 07:00
DX: R51.9 Headache, unspecified (principal)
CPT/HCPCS: 85025; 80048; 36415; 70450; 96375; 96374; 99284; J2405

== ENCOUNTER 2021-02-11 07:09 | Emergency (ER) | payer BC ==
--- OUTSIDE RECORDS SUMMARY | 2021-02-11 07:13 | XMS REPORT | Continuity of Care Document ---
:2000 Author Organization [facility] t Address [address] [place] [place] [address] Care Team Providers Name Role Phone Unavailable [...] Clinicians Facility Department ID 2020-10-02 2020-10-02 Outpatient [facility] [id number] [facility] Clin[facility] 2020-09-11 2020-09-11 Outpatient [facility] [id number] [facility] ent Clinics Results This patient has no known results.
[2021-02-11] MEDS ORDERED: NA CHLORIDE 0.9% 1,000 ML ONE (07:52)
[2021-02-11] MEDS ORDERED: FOLIC ACID 5 MG/ML VIAL ONE (07:53)
[2021-02-11 08:12] LABS: Absolute Lymphocytes (CBC) 1.4 K/uL (0.7-4.9); Basophils % 0.6 % (0-1.3); Hematocrit 45.5 % (39.6-49.0); MPV 9.2 fL (7.6-11.3); Protime INR 1.04; RBC Red Blood Cell Count 5.53 M/uL (4.33-5.43)
--- NOTE | 2021-02-11 08:22 | RAD REPORT ---
EXAM DESCRIPTION: RAD - Chest Single View - 02/11/2021 8:15 am CLINICAL HISTORY: COUGH COMPARISON: Chest Single View dated 02/23/2018 FINDINGS: Lines: None. Lungs: No evidence of edema or pneumonia. Pleural: No significant pleural effusions or pneumothorax. Cardiac: The heart size is within normal limits. Bones: No acute fractures. Other: IMPRESSION: No acute cardiopulmonary disease.
--- NOTE | 2021-02-11 08:22 | RAD REPORT ---
EXAM DESCRIPTION: MRI - Brain Wo Cont - 02/11/2021 8:09 am CLINICAL HISTORY: Left-sided numbness COMPARISON: 02/09/[address] TECHNIQUE: Sagittal T1-weighted images were obtained along with PD/heavily T2-weighted and T2-FLAIR images. Axial DWI and ADC mapping sequences were also obtained along with coronal heavily T2-weighted images were obtained. FINDINGS: No intracranial hemorrhage, mass or acute infarction. There is no edema or shift of midlin e structures. No extra-axial fluid collections. Chinchilla-matter/white matter junction is preserved. Signa l voids are seen as a normal finding in the major intracranial vessels. Mastoid air cells and paranasal sinuses are clear. IMPRESSION: Negative non-contrast MRI of the Brain. Specifically, no evidence of acute or subacute infarct.
--- NOTE | 2021-02-11 08:53 | EDPHYS ---
Physician Documentation [facility] Name: Km Correa Age: 20 yrs Sex: Male : 2000 Arrival Date: 02/11/2021 Time: 07:10 Bed 16 Private MD: BLU Physician Darrell Jackson HPI: 02/11 08:42 This 20 yrs old Male presents to ER via Ambulatory with complaints of trino Headache, L Side Numbness. 08:42 The patient complains of pain to the top of head, forehead, left frontal area, left trino side of the back of head, left occipital area, left base of the skull, right frontal area, right side of the back of head, right occipital area and right base of the skull. The patient describes the headache as aching. Onset: The symptoms/episode began/occurred this morning. Associated signs and symptoms: Pertinent positives: weakness. Severity of symptoms: At its worst the pain was moderate, in the emergency department the pain is unchanged. Headache History: The patient has had previous headaches and this one is similar to previous episodes. The symptoms are alleviated by nothing. the symptoms are aggravated by nothing. The patient has experienced similar episodes in the past, multiple times. Historical: - Allergies: 07:21 No Known Allergies; ll1 - PMHx: 07:21 Migraine; ll1 - PSHx: 07:21 None; ll1 - Immunization history:: Client reports having NOT received the Covid vaccine. Flu vaccine status is unknown. - Social history:: Smoking status: Reported history of juuling and/or vaping. ROS: 08:42 Constitutional: Negative for fever, chills, and weight loss, Eyes: Negative for injury, trino pain, redness, and discharge, ENT: Negative for injury, pain, and discharge, Neck: Negative for injury, pain, and swelling, Cardiovascular: Negative for chest pain, palpitations, and edema, Respiratory: Negative for shortness of breath, cough, wheezing, and pleuritic chest pain, Abdomen/GI: Negative for abdominal pain, nausea, vomiting, diarrhea, and constipation, Back: Negative for injury and pain, : Negative for injury, bleeding, discharge, and swelling, MS/Extremity: Negative for injury and deformity, Skin: Negative for injury, rash, and discoloration, Psych: Negative for depression, anxiety, suicide ideation, homicidal ideation, and hallucinations, Allergy/Immunology: Negative for hives, rash, and allergies, Endocrine: Negative for neck swelling, polydipsia, polyuria, polyphagia, and marked weight changes, Hematologic/Lymphatic: Negative for swollen nodes, abnormal bleeding, and unusual bruising. 08:42 Neuro: Positive for headache, tingling, of the left arm and left leg. Exam: 08:42 Constitutional: This is a well developed, well nourished patient who is awake, alert, trino and in no acute distress. Head/Face: Normocephalic, atraumatic. Eyes: Pupils equal round and reactive to light, extra-ocular motions intact. Lids and lashes normal. Conjunctiva and sclera are non-icteric and not injected. Cornea within normal limits. Periorbital areas with no swelling, redness, or edema. ENT: Nares patent. No nasal discharge, no septal abnormalities noted. Tympanic membranes are normal and external auditory canals are clear. Oropharynx with no redness, swelling, or masses, exudates, or evidence of obstruction, uvula midline. Mucous membranes moist. Neck: Trachea midline, no thyromegaly or masses palpated, and no cervical lymphadenopathy. Supple, full range of motion without nuchal rigidity, or vertebral point tenderness. No Meningismus. Chest/axilla: Normal chest wall appearance and motion. Nontender with no deformity. No lesions are appreciated. Cardiovascular: Regular rate and rhythm with a normal S1 and S2. No gallops, murmurs, or rubs. Normal PMI, no JVD. No pulse deficits. Respiratory: Lungs have equal breath sounds bilaterally, clear to auscultation and percussion. No rales, rhonchi or wheezes noted. No increased work of breathing, no retractions or nasal flaring. Abdomen/GI: Soft, non-tender, with normal bowel sounds. No distension or tympany. No guarding or rebound. No evidence of tenderness throughout. Back: No spinal tenderness. No costovertebral tenderness. Full range of motion. Skin: Warm, dry with normal turgor. Normal color with no rashes, no lesions, and no evidence of cellulitis. MS/ Extremity: Pulses equal, no cyanosis. Neurovascular intact. Full, normal range of motion. Neuro: Awake and alert, GCS 15, oriented to person, place, time, and situation. Cranial nerves II-XII grossly intact. Motor strength 5/5 in all extremities. Sensory grossly intact. Cerebellar exam normal. Normal gait. Psych: Awake, alert, with orientation to person, place and time. Behavior, mood, and affect are within normal limits. 08:42 ECG was reviewed by the Attending Physician. 08:42 Musculoskeletal/extremity: Exam is negative for Vital Signs: 07:19 BP 131 / 70; Pulse 71; Resp 17; Temp 98.1; Pulse Ox 95% on R/A; Weight 129.27 kg; ll1 Height 5 ft. 11 in. (180.34 cm); Pain 7/10; 09:22 BP 124 / 64; Pulse 63; Resp 15; Pulse Ox 100% ; jl7 07:19 Body Mass Index 39.75 (129.27 kg, 180.34 cm) ll1 NIH Stroke Scale Scores: 08:42 NIHSS Score: 0 trino Mayking Coma Score: 08:53 Eye Response: spontaneous(4). Verbal Response: oriented(5). Motor Response: obeys trino commands(6). Total: 15. MDM: 07:19 Patient medically screened. trino 08:53 Differential diagnosis: cerebral vascular accident, hyponatremia, migraine, otitis, trino sinusitis, tension headache, uremia. Data reviewed: vital signs, nurses notes, lab test result(s), EKG, radiologic studies, MRI. Data interpreted: pvc monitor: rate is 71 beats/min, rhythm is regular, Pulse oximetry: on room air is 95 %. Test interpretation: by ED physician or midlevel provider: ECG, plain radiologic studies. Counseling: I had a detailed discussion with the patient and/or guardian regarding: the historical points, exam findings, and any diagnostic results supporting the discharge/admit diagnosis, lab results, radiology results, the need for outpatient follow up, for definitive care, a family practitioner, a neurologist. 02/11 07:25 Order name: Basic Metabolic Panel 02/11 07:25 Order name: CBC with Diff; Complete Time: 08:37 [facility] 02/11 07:25 Order name: LFT's [facility] 02/11 07:25 Order name: Magnesium trino 02/11 07:25 Order name: NT PRO-BNP trino 02/11 07:25 Order name: PT-INR; Complete Time: 08:37 [facility] 09/07 07:25 Order name: Troponin (emerg Dept Use Only) [facility] 02/11 07:25 Order name: XRAY Chest (1 view); Complete Time: 08:37 [facility] 02/11 07:25 Order name: EKG; Complete Time: 07:26 trino 02/11 07:25 Order name: UDS [facility] 02/11 08:08 Order name: Brain Wo Cont; Complete Time: 08:37 EDMS 02/11 07:25 Order name: Cardiac monitoring; Complete Time: 07:53 [facility] 02/11 07:25 Order name: EKG - Nurse/Tech; Complete Time: 07:53 [facility] 02/11 07:25 Order name: IV Saline Lock; Complete Time: 07:53 [facility] 02/11 07:25 Order name: Labs collected and sent; Complete Time: 07:53 [facility] 02/11 07:25 Order name: O2 Per Protocol; Complete Time: 07:53 [facility] 02/11 07:25 Order name: O2 Sat Monitoring; Complete Time: 07:53 [facility] EC:42 Rate is 55 beats/min. Rhythm is regular. QRS [place] is Normal. CA interval is normal. QRS trino interval is normal. QT interval is normal. No Q waves. T waves are Normal. No ST changes noted. Clinical impression: Sinus bradycardia. Interpreted by me. Reviewed by me. Administered Medications: 07:44 Drug: foLIC Acid 1 mg Route: IVPB; Site: left antecubital; jl7 07:45 Follow up: Response: No adverse reaction; IV Status: Completed infusion jl7 08:30 Drug: NS 0.9% 1000 ml Route: IV; Rate: 1 bolus; Site: left antecubital; jl7 09:24 Follow up: Response: No adverse reaction; IV Status: Completed infusion; IV Intake: jl7 600ml Disposition Summary: 02/11/21 08:52 Discharge Ordered Location: Home trino Problem: new trino Symptoms: have improved trino Condition: Stable trino Diagnosis - Bradycardia, unspecified trino - Headache trino Followup: trino - With: Private Physician - When: 2 - 3 days - Reason: Recheck today's complaints, Continuance of care, Re-evaluation by your physician Followup: trino - With: Francis Moss MD - When: 2 - 3 days - Reason: Recheck today's complaints, Continuance of care, Re-evaluation by your physician Discharge Instructions: - Discharge Summary Sheet trino - Bradycardia, Adult trino - General Headache Without Cause trino - Migraine Headache trino - Health Risks of Smoking trino - Aspirin and Your Heart trino Forms: - Medication Reconciliation Form trino - Thank You Letter trino - Antibiotic Education trino - Prescription Opioid Use trino Prescriptions: - Ibuprofen 600 mg Oral Tablet - take 1 tablet by ORAL route every 6 hours As needed take with food; 30 tablet; trino Refills: 0, Product Selection Permitted NIH Stroke Scale - NIH Stroke Score Date: 02/11/2021 Time: 08:42 Total Score = 0 1a. Level of Consciousness (LOC) - 0(Alert) 1b. Level of Consciousness (LOC) (Month \T\ Age) - 0(Both) 1c. LOC Commands (Open \T\ Closes Eyes/Drafting Technician) - 0(Both) 2. Best Gaze (Lateral Gaze Paresis) - 0(Normal) 3. Visual Field Loss - 0(No visual loss) 4. Facial Palsy - 0(Normal) 5a. Left Arm: Motor (10-second hold) - 0(No drift) 5b. Right Arm: Motor (10-second hold) - 0(No drift) 6a. Left Leg: Motor (5-second hold - always test supine) - 0(No drift) 6b. Right Leg: Motor (5-second hold - always test supine) - 0(No drift) 7. Limb Ataxia (finger/nose \T\ heel/walker - test with eyes open) - 0(Absent) 8. Sensory Loss (pinprick arms/legs/face) - 0(Normal) 9. Best Language: Aphasia (description/naming/reading) - 0(No aphasia) 10. Dysarthria (speech clarity - read or repeat words) - 0(Normal) 11. Extinction and Inattention (visual/tactile/auditory/spatial/personal) - 0(No abnormality) Initials: trino Signatures: Dispatcher [employer] EDMS Darrell Jackson MD MD cha Leal, Jahala RN RN jl7 Sam Kimball RN RN ll1 Corrections: (The following items were deleted from the chart) 08:08 07:26 MR STROKE PROTOCOL+MRI.RAD.BRZ ordered. EDMS EDMS
--- NOTE | 2021-02-11 08:53 | ER ---
Nurse's Notes [facility] Name: Km Correa Age: 20 yrs Sex: Male : 2000 Arrival Date: 02/11/2021 Time: 07:10 Bed 16 Private MD: Diagnosis: Bradycardia, unspecified;Headache Presentation: 02/11 07:19 Chief complaint: Patient states: Here again with same complaints as Wednesday. ARMSTRONG's with ll1 nausea and awakes with L sided numbness in the mornings. CT was negative. Coronavirus screen: Vaccine status: Patient reports being unvaccinated. Client denies travel out of the [place] in the last 14 days. At this time, the client does not indicate any symptoms associated with coronavirus-19. Ebola Screen: Patient denies travel to an Ebola-affected area in the 21 days before illness onset. Initial Sepsis Screen: Does the patient meet any 2 criteria? No. Patient's initial sepsis screen is negative. Does the patient have a suspected source of infection? Yes: Other: ARMSTRONG. Risk Assessment: Do you want to hurt yourself or someone else? Patient reports no desire to harm self or others. Onset of symptoms was February 06, 2021. 07:19 Method Of Arrival: Ambulatory [facility] 07:19 Acuity: SAMEER 3 ll1 Triage Assessment: 07:22 Headache History: The patient has had previous headaches and this one is similar to ll1 previous episodes. General: Appears in no apparent distress. Behavior is calm, cooperative, appropriate for age. Pain: Complains of pain in head Pain currently is 7 out of 10 on a pain scale. Pain began 5 days ago Also complains of nausea. Neuro: Level of Consciousness is awake, alert, obeys commands, Oriented to person, place, time, situation, Appropriate for age Moves all extremities. Full function Gait is steady, Speech is normal, Reports headache numbness. Cardiovascular: No deficits noted. Respiratory: No deficits noted. GI: Reports nausea. Historical: - Allergies: 07:21 No Known Allergies; ll1 - PMHx: 07:21 Migraine; ll1 - PSHx: 07:21 None; ll1 - Immunization history:: Client reports having NOT received the Covid vaccine. Flu vaccine status is unknown. - Social history:: Smoking status: Reported history of juuling and/or vaping. Screenin:22 Abuse screen: Denies threats or abuse. Nutritional screening: No deficits noted. ll1 Tuberculosis screening: No symptoms or risk factors identified. 07:56 Fall Risk IV access (20 points). Total Darby Fall Scale indicates No Risk (0-24 pts). jl7 Assessment: 07:30 General: Appears in no apparent distress. uncomfortable, Behavior is calm, cooperative, jl7 appropriate for age. Pain: Complains of pain in ARMSTRONG Pain currently is 7 out of 10 on a pain scale. Neuro: Level of Consciousness is awake, alert, obeys commands, Oriented to person, place, time, situation, Reports numbness in left arm. Cardiovascular: Denies chest pain, Patient's skin is warm and dry. Respiratory: Airway is patent Respiratory effort is even, unlabored, Respiratory pattern is regular, symmetrical, Denies shortness of breath. Derm: Skin is pink, warm \T\ dry. 07:45 Reassessment: Pt to MRI. jl7 08:25 Reassessment: Pt returned from CT. jl7 09:00 Reassessment: Pt will be discharged once fluids are done infusing. jl7 Vital Signs: 07:19 BP 131 / 70; Pulse 71; Resp 17; Temp 98.1; Pulse Ox 95% on R/A; Weight 129.27 kg; ll1 Height 5 ft. 11 in. (180.34 cm); Pain 7/10; 09:22 BP 124 / 64; Pulse 63; Resp 15; Pulse Ox 100% ; jl7 07:19 Body Mass Index 39.75 (129.27 kg, 180.34 cm) ll1 [place] Coma Score: 08:53 Eye Response: spontaneous(4). Verbal Response: oriented(5). Motor Response: obeys trino commands(6). Total: 15. NIH Stroke Scale Scores: 08:42 NIHSS Score: 0 trino ED Course: 07:10 Patient arrived in ED. ds1 07:13 Hay Gary RN is Primary Nurse. jl7 07:19 Darrell Jackson MD is Attending Physician. trino 07:19 Arm band placed on Patient placed in an exam room, on a stretcher. ll1 07:21 Triage completed. ll1 07:44 Initial lab(s) drawn, by me, sent to lab. Urine collected: clean catch specimen, clear, jl7 EKG done, by ED staff, reviewed by Darrell Jackson MD. Inserted saline lock: 20 gauge in left antecubital area, using aseptic technique. Blood collected. 07:56 Patient has correct armband on for positive identification. Bed in low position. Call jl7 light in reach. Side rails up X 1. cafeteria monitor on. Pulse ox on. NIBP on. 08:09 Brain Wo Cont In Process Unspecified. EDMS 08:15 XRAY Chest (1 view) In Process Unspecified. EDMS 08:52 Francis Moss MD is Referral Physician. trino 09:24 No provider procedures requiring assistance completed. IV discontinued, intact, jl7 bleeding controlled, No redness/swelling at site. Pressure dressing applied. Administered Medications: 07:44 Drug: foLIC Acid 1 mg Route: IVPB; Site: left antecubital; jl7 07:45 Follow up: Response: No adverse reaction; IV Status: Completed infusion jl7 08:30 Drug: NS 0.9% 1000 ml Route: IV; Rate: 1 bolus; Site: left antecubital; jl7 09:24 Follow up: Response: No adverse reaction; IV Status: Completed infusion; IV Intake: jl7 600ml Intake: 09:24 IV: 600ml; Total: 600ml. jl7 Outcome: 08:52 Discharge ordered by . trino 09:24 Discharged to home ambulatory. jl7 09:24 Condition: stable 09:24 Discharge instructions given to patient, Instructed on discharge instructions, follow up and referral plans. medication usage, Demonstrated understanding of instructions, follow-up care, medications, Prescriptions given X 1. 09:24 Patient left the ED. jl7 NIH Stroke Scale - NIH Stroke Score Date: 02/11/2021 Time: 08:42 Total Score = 0 1a. Level of Consciousness (LOC) - 0(Alert) 1b. Level of Consciousness (LOC) (Month \T\ Age) - 0(Both) 1c. LOC Commands (Open \T\ Closes Eyes/Athletic Coordinator) - 0(Both) 2. Best Gaze (Lateral Gaze Paresis) - 0(Normal) 3. Visual Field Loss - 0(No visual loss) 4. Facial Palsy - 0(Normal) 5a. Left Arm: Motor (10-second hold) - 0(No drift) 5b. Right Arm: Motor (10-second hold) - 0(No drift) 6a. Left Leg: Motor (5-second hold - always test supine) - 0(No drift) 6b. Right Leg: Motor (5-second hold - always test supine) - 0(No drift) 7. Limb Ataxia (finger/nose \T\ heel/walker - test with eyes open) - 0(Absent) 8. Sensory Loss (pinprick arms/legs/face) - 0(Normal) 9. Best Language: Aphasia (description/naming/reading) - 0(No aphasia) 10. Dysarthria (speech clarity - read or repeat words) - 0(Normal) 11. Extinction and Inattention (visual/tactile/auditory/spatial/personal) - 0(No abnormality) Initials: trino Signatures: Dispatcher [employer] Darrell Encarnacion MD MD cha Sanford, Demi ds1 Hay Gary RN RN jl7 Sam Kimball RN RN ll1
[2021-02-11 09:31] VITALS: TEMP 98.1
[2021-02-11 09:32] VITALS: BP 124/64; O2SAT 100
[2021-02-11 10:26] LABS: Barbiturates NEGATIVE (NEGATIVE); Benzodiazepines NEGATIVE (NEGATIVE); Cocaine NEGATIVE (NEGATIVE); METHAMPHETAM NEGATIVE (NEGATIVE); Methadone NEGATIVE (NEGATIVE); Opiates NEGATIVE (NEGATIVE); Phencyclidine NEGATIVE (NEGATIVE); THC Cannibis NEGATIVE (NEGATIVE)
[2021-02-11 10:38] LABS: ALT/SGPT 26 U/L (12-78); AST/SGOT 8 U/L (15-37); Albumin 3.7 g/dL (3.4-5.0); Alkaline Phosphatase 83 U/L (45-117); BUN Blood Urea Nitrogen 19 mg/dL (7-18); Bicarbonate 26 mmol/L (21-32); Bilirubin Direct 0.2 mg/dL (0-0.2); Bilirubin Total 0.5 mg/dL (0.2-1.0); Glucose Level 94 mg/dL (74-106); Magnesium 1.9 mg/dL (1.8-2.4); NT PRO-BNP 131 pg/mL (<125); Potassium 3.9 mmol/L (3.5-5.1); Protein, Total 6.9 g/dL (6.4-8.2); Sodium Level 141 mmol/L (136-145); Troponin (Emerg Dept Use Only) < 0.02 ng/mL (0.0-0.045)
--- NOTE | 2021-02-11 10:54 | EKG ---
Test Date: 2021-02-11 Test Time: 07:33:38 Implementation Manager: CATRINA MEASUREMENT RESULTS: Intervals: Rate: 55 MA: 148 QRSD: 100 QT: 398 QTc: 380 [place]: P: -1 MA: 148 QRS: 10 T: 16 INTERPRETIVE STATEMENTS: Sinus bradycardia with sinus arrhythmia Otherwise normal ECG Compared to ECG 02/23/2018 14:56:21 Sinus rhythm no longer present Left ventricular hypertrophy no longer present Electronically Signed On 02-11-21 10:53:27 CDT by Bernardo Carey
[2021-02-11] MEDS ORDERED: CIPROFLOXACIN 400mg IV 400 MG/200 ML BAG IV ONE (10:56)
== END 2021-02-11 09:24 | disposition home or self-care (01) ==
LOC: ER 07:09
DX: R51.9 Headache, unspecified (principal); R00.1 Bradycardia, unspecified
CPT/HCPCS: 96361; 93005; 85025; 80048; 36415; 83735; 85610; 80076; 84484; 83880; 80307; 71045; 70551; 96374; 99284; J7030; J0744

== ENCOUNTER 2023-03-22 17:05 | Emergency (ER) | payer BC ==
--- OUTSIDE RECORDS SUMMARY | 2023-03-22 17:08 | XMS REPORT | Continuity of Care Document ---
:2000 Author Organization [facility] t Address [address] [place] [address] Care Team Providers Name Role Phone PCP, PATIENT DOES NOT HAVE A Primary Care Physician UnavailSteve Jurado Attending Clinician Unavailable JAME GRAY Attending Clinician Unavailable JAME GRAY Attending Clinician Unavailable Jame Gray MD Attending Clinician Doctor Unassigned, [place] Attending Clinician Unavailable Jen Marshall Attending Clinician JEN ROLDAN Attending Clinician Unavailable JEN ROLDAN Admitting Clinician Unavailable Payers Payer Name Policy Type Policy Number Effective Date Expiration Date S rubina [employer] [place] [id number] 2017 - OUT OF STATE 00:00:00 Blue Cross C1 [id number] 2020 Common Spiri t Blue Shield of 00:00:[address] - [facility] Problems Condition Condition Condition Status Onset Resolution Last Treating Co mments Source Name Details Category Date Date Treatment Clinician Date No known No known Disease Unive rs active active ity of problems problems [facility] [id number] Medical Problem Active Commo n history Spirit non-contri - [facility] [id number] Morbid Problem Active Commo n 9104 (severe) Spirit obesity - [facility] due to [facility] [id number] Hypertrigl Problem Active Co mmon yceridemia [facility] - [facility] [id number] Body mass Problem Active Com mon index Spirit [BMI]40.0- - [facility] 44.9, [facility] Migraine Migraine Problem Active Commo n [facility] Allergies, Adverse Reactions, Alerts Allergy Allergy Status Severity Reaction(s) Onset Inactive Treating Comm ents Source Name Type Date Date Clinician NO KNOWN Drug Active Univers ALLERGIE Class ity of [facility] [place] [facility] Social History Social Habit Start Date Stop Date Quantity Comments Source Exposure to Not sure [facility] SARS-CoV-2 [place] [facility] (event) Branch History SDOH University o f Alcohol Frequency [place] [facility] History SDOH University o f Alcohol Std [place] [facility] Drinks Branch History SDOH University o f Alcohol Binge [place] [facility] History of Current Smoker Common Spi rit - Tobacco Use [facility] Sex Assigned At Common Sp peace - [facility] Alcohol intake 2021-03-04 2021-03-04 .14 /d University of 00:00:00 00:00:00 [facility] Alcohol Comment 2021-03-04 2021-03-04 Social Drinker; [facility] of 00:00:00 00:00:00 1x monthly with [facility] intake of 2-5 Branch drinks in one sitting Smoking Status Start Date Stop Date Source Current Smoker 2021-02-02 00:00:00 Common Spiri t - [facility] Never smoker [facility] Medications Ordered Filled Start Stop Current Ordering Indication Dosage Frequency Signature Comments Components Source Medication Medication Date Date Medication? Clinician (SIG) Name Name divalproex 202- No [id number] 250mg Take 1 Univers (DEPAKOTE) 03-04- tablet by ity of 250 mg EC 00:00: 04:59 mouth 2 [place] tablet [place] :00 (two) Medical times Branch daily for 30 days. Polymyxin Polymyxin 2021- No 1{drop_ QID Polymyxin B-Trimethop B-Trimethop 4-07 04-14 into_af B-Trimetho rim rim 00:00: 00:00 fected_ prim 00343-4.1 60564-8.1 00 :00 eye} 11503-8.1 UNIT/ML UNIT/ML UNIT/ML cyclobenzap 2020-0 Yes [id number] 5mg Take 0.5 Univers rine 10 mg 5-02 tablets by ity of tablet 00:00: mouth 3 00 (three) Medical times Branch daily as needed for Muscle Spasms. ibuprofen 2020-0 Yes [id number] 800mg Take 1 Univers 800 mg 5-02 tablet by ity of tablet 00:00: mouth [place] 00 every 6 Medical (six) Branch hours as needed for Pain (scale 4-6). Augmentin Augmentin 2017-06 No 1{table BID Augmentin 875-125 MG 875-125 MG 2-15 t} 875-125 MG 00:00: 00 Flonase 50 Flonase 50 2017-06 No QD Flonase 50 MCG/ACT MCG/ACT 2-15 MCG/ACT 00:00: 00 Flonase 50 Flonase 50 2017-06 No QD Flonase 50 MCG/ACT MCG/ACT 2-15 MCG/ACT 00:00: 00 Augmentin Augmentin 2017-06 No 1{table BID Augmentin 875-125 MG 875-125 MG 2-15 t} 875-125 MG 00:00: 00 Flonase 50 Flonase 50 2017-06 No QD Flonase 50 MCG/ACT MCG/ACT 2-15 MCG/ACT 00:00: 00 Augmentin Augmentin 2017-06 No 1{table BID Augmentin 875-125 MG 875-125 MG 2-15 t} 875-125 MG 00:00: 00 Flonase 50 Flonase 50 2017-06 No QD Flonase 50 MCG/ACT MCG/ACT 2-15 MCG/ACT 00:00: 00 Augmentin Augmentin 2017-06 No 1{table BID Augmentin 875-125 MG 875-125 MG 2-15 t} 875-125 MG 00:00: 00 Vital Signs Vital Name Observation Time Observation Value Comments Source Body temperature 2021-03-04 13:50:00 37.06 As[place] Respiratory rate 2021-03-04 13:50:00 16 /min [facility] Body height 2021-03-04 13:50:00 180.3 cm [facility] Branch Body weight 2021-03-04 13:50:00 137.128 kg Universi [facility] BMI 2021-03-04 13:50:00 42.16 kg/m2 [facility] Oxygen saturation in 2021-03-04 13:50:00 98 /min University Arterial blood by [facility] Pulse oximetry Branch Systolic blood 2021-03-04 13:50:00 131 mm[Hg] Univer sity of pressure [facility] Diastolic blood 2021-03-04 13:50:00 82 mm[Hg] Unive rsity of pressure [facility] Heart rate 2021-03-04 13:50:00 64 /min Universi [facility] height 2020-10-02 15:20:00 71 [in_i] [facility] weight 2020-10-02 15:20:00 296.7 [lb_av] [facility] temperature 2020-10-02 15:20:00 97.2 [degF] [facility] bmi 2020-10-02 15:20:00 41.38 kg/m2 [facility] oximetry 2020-10-02 15:20:00 97 % [facility] respiratory rate 2020-10-02 15:20:00 18 /min Comm on [facility] blood pressure 2020-10-02 15:20:00 133 mm[Hg] Common [facility] - systolic [facility] blood pressure 2020-10-02 15:20:00 68 mm[Hg] Common [facility] diastolic [facility] height 2020-09-11 16:00:00 71 [in_i] [facility] weight 2020-09-11 16:00:00 291.7 [lb_av] [facility] temperature 2020-09-11 16:00:00 97.3 [degF] [facility] bmi 2020-09-11 16:00:00 40.68 kg/m2 [facility] oximetry 2020-09-11 16:00:00 97 % Common S pirit [facility] respiratory rate 2020-09-11 16:00:00 17 /min Comm on [facility] blood pressure 2020-09-11 16:00:00 119 mm[Hg] Common [facility] - systolic [facility] blood pressure 2020-09-11 16:00:00 59 mm[Hg] Common [facility] - diastolic [facility] Procedures This patient has no known procedures. Encounters Start End Encounter Admission Attending Care Care Encounter Source Date/Time Date/Time Type Type Clinicians Facility Department ID 2021-12-31 Outpatient Quigley, STLMLC STLC [id number] Common 10:02:02 Steve [id number] [facility] 2021-07-02 Outpatient Quigley, STLMLC STLC [id number] Common 13:47:13 Steve [id number] [facility] 2021-07-02 Outpatient Quigley, STLC STLC [id number] Common 12:49:09 Steve [id number] [facility] 2021-03-20 2021-03-20 Outpatient JAME JIANG [facility] [id number] Univers 00:00:00 00:00:00 JAME GRAY [facility] 2021-03-05 2021-03-05 Telephone Isaac [facility] [id number] Univers 00:00:00 00:00:00 [facility] 350..13.10 ity of [place] [id number] Randall as Robin?Blea [phone] [address] Office [facility] 2021-03-04 2021-03-04 [facility] [id number] Univers 08:49:51 10:18:12 Visit [facility] [id number] ity of [place] 4.2.7.2.686 Randall as Robin?Blea [phone] [address] Medical Office [facility] 2021-03-04 2021-03-04 Outpatient JAME JIANG [facility] [id number] Univers 08:40:00 08:40:00 ISAACJAME Dela Cruz ity of [facility] 2021-03-04 2021-03-04 Orders Doctor CHERY [id number] Univers 00:00:00 00:00:00 Only Unassigned, JANELL [id number] [facility] [id number] Randall as [id number] [address] 2021-02-14 2021-02-14 (TEL) STLMLC STLMLC [id number] Co mmon 00:00:00 00:00:00 [facility] 2021-02-12 2021-02-12 Orders Doctor CHERY [id number] Univers 00:00:00 00:00:00 Only Unassigned, JANELL [id number] ity of [facility][1] [id number] Randall as [id number] [address] 2021-02-12 2021-02-12 (TEL) STLMLC STLMLC [id number] Co mmon 00:00:00 00:00:00 [facility] 2020-10-02 2020-10-02 OFFICE STLMLC STLMLC [id number] Co mmon 00:00:00 00:00:00 VISIT EST Spir it PT LEVEL 3 - [facility] 2020-09-11 2020-09-11 PREV VISIT STLMLC STLMLC [id number] Common 00:00:00 00:00:00 NEW AGE Spirit 18-39 - [facility] 2019-10-07 2019-10-07 Emergency [facility] [id number] Univers 17:21:54 20:00:00 Jen Kim [id number] ity [facility] [id number] [facility] [id number] [place] [id number] Branch 2019-10-07 2019-10-07 [facility] ERT [id number] Univers 17:21:54 20:00:00 FOLYANAO ity [facility] Results This patient has no known results.
[2023-03-22 17:48] LABS: Absolute Lymphocytes (CBC) 2.8 K/uL (0.7-4.9); Hematocrit 42.7 % (39.6-49.0); Lymphocytes % 26.8 % (15.3-44.8); MCV 80.1 fL (80-100); MPV 9.2 fL (7.6-11.3); Platelets 264 thou/uL (152-406); RBC Red Blood Cell Count 5.33 M/uL (4.33-5.43)
--- NOTE | 2023-03-22 17:57 | RAD REPORT ---
EXAM DESCRIPTION: RAD - Chest Single View - 03/22/2023 5:51 pm CLINICAL HISTORY: CHEST PAIN Chest pain. COMPARISON: Chest Single View dated 02/11/2021; Chest Single View dated 02/23/2018 FINDINGS: Portable technique limits examination quality. The lungs are grossly clear. The heart is normal in size. No displaced fractures. IMPRESSION: No acute intrathoracic process suspected.
[2023-03-22 18:04] LABS: Albumin 3.4 g/dL (3.4-5.0); Bilirubin Direct 0.1 mg/dL (0-0.2); Bilirubin Indirect, Calculated 0.4 mg/dL (0.2-0.8); Bilirubin Total 0.5 mg/dL (0.2-1.0); Magnesium 2.1 mg/dL (1.6-2.4); Potassium 4.1 mEq/L (3.5-5.1); Protein, Total 7.2 g/dL (6.4-8.2); Troponin High Sensitivity 10.6 pg/mL (<58.9)
[2023-03-22 18:39] LABS: Protime INR 0.98
[2023-03-22] MEDS ORDERED: KETOROLAC 30 MG/ML INJ ONE (19:23)
--- NOTE | 2023-03-22 19:30 | ER ---
Nurse's Notes [facility] Name: Km Correa Age: 22 yrs Sex: Male : 2000 Arrival Date: 03/22/2023 Time: 17:05 Bed 20 Private MD: Diagnosis: Chest pain, unspecified Presentation: 03/22 17:12 Chief complaint: Patient states: Chest pain on/off for 2 days, changes sides depending nj1 on "my movement". Coronavirus screen: Vaccine status: Patient reports being unvaccinated. Ebola Screen: Patient denies travel to an Ebola-affected area in the 21 days before illness onset. Initial Sepsis Screen: Does the patient meet any 2 criteria? No. Patient's initial sepsis screen is negative. Does the patient have a suspected source of infection? No. Patient's initial sepsis screen is negative. Risk Assessment: Do you want to hurt yourself or someone else? Patient reports no desire to harm self or others. Onset of symptoms was March 21, 2023. 17:12 [facility] 17:12 Acuity: SAMEER 3 nj1 Historical: - Allergies: 17:14 No Known Allergies; nj1 - PMHx: 17:14 Migraine; nj1 - PSHx: 17:14 None; nj1 - Immunization history:: Client reports having NOT received the Covid vaccine. - Social history:: Smoking status: Reported history of juuling and/or vaping. Screenin:[address] [facility] ED Fall Risk Assessment (Adult) History of falling in the last 3 months, ap3 including since admission No falls in past 3 months (0 pts). Abuse screen: Denies threats or abuse. Nutritional screening: No deficits noted. Tuberculosis screening: No symptoms or risk factors identified. Assessment: 17:52 General: Appears in no apparent distress. Behavior is calm, cooperative. Pain: ap3 Complains of pain in chest Pain does not radiate. Pain currently is 3 out of 10 on a pain scale. Pain began 2-3 days ago. Neuro: Level of Consciousness is awake, alert, obeys commands, Oriented to person, place, time, situation. Cardiovascular: Reports chest pain, Patient's skin is warm and dry. Respiratory: Airway is patent Respiratory effort is even, unlabored, Respiratory pattern is regular, symmetrical. 19:15 Reassessment: Patient appears in no apparent distress at this time. No changes from jw7 previously documented assessment. Patient and/or family updated on plan of care and expected duration. Pain level reassessed. Patient is alert, oriented x 3, equal unlabored respirations, skin warm/dry/pink. 20:00 Reassessment: Patient appears in no apparent distress at this time. Patient and/or jw7 family updated on plan of care and expected duration. Pain level reassessed. Patient is alert, oriented x 3, equal unlabored respirations, skin warm/dry/pink. Patient states feeling better. Vital Signs: 17:12 BP 122 / 49; Pulse 83; Resp 18; Temp 99(O); Pulse Ox 99% ; Weight 136.08 kg; Height 5 nj1 ft. 11 in. ; Pain 3/10; 18:51 BP 124 / 48; Pulse 71; Pulse Ox 100% on R/A; ap3 19:30 BP 124 / 62; Pulse 73; Resp 16 S; Pulse Ox 100% on R/A; jw7 17:12 Body Mass Index 41.84 (136.08 kg, 180.34 cm) nj1 17:12 Pain Scale: Adult nj1 ED Course: 17:06 Patient arrived in ED. rg4 17:10 Darrell Wilson PA is PHCP. cp 17:10 Robert Romero DO is Attending Physician. cp 17:14 Triage completed. nj1 17:15 Arm band placed on right wrist. nj1 17:34 bus monitor on. Pulse ox on. NIBP on. Door closed. Noise minimized. ap3 17:34 Initial lab(s) drawn, by mi, sent to lab. Inserted saline lock: 20 gauge in right ap3 antecubital area, using aseptic technique. Blood collected. Patient maintains SpO2 saturation greater than 95% on room air. 17:52 Anisa Cantor, TRI is Primary Nurse. ap3 17:52 EKG done, by ED staff, reviewed by Darrell DESIR. ap3 17:53 XRAY Chest (1 view) In Process Unspecified. EDMS 17:53 Patient has correct armband on for positive identification. Bed in low position. Call ap3 light in reach. Side rails up X 1. Adult w/ patient. 17:53 No provider procedures requiring assistance completed. ap3 20:07 Provided Education on: discharge instructions and medication usage. jw7 20:07 IV discontinued, intact, bleeding controlled, No redness/swelling at site. Pressure jw7 dressing applied. Administered Medications: 19:15 Drug: Ketorolac IVP 15 mg IVP once Route: IVP; Site: right antecubital; jw7 20:06 Follow up: Response: No adverse reaction; Marked relief of symptoms jw7 Medication: 17:53 VIS not applicable for this client. ap3 Outcome: 19:30 Discharge ordered by . sapna 20:07 Discharged to home ambulatory, jw7 20:07 Condition: stable 20:07 Discharge instructions given to patient, Instructed on discharge instructions, follow up and referral plans. medication usage, Demonstrated understanding of instructions, follow-up care, medications, Prescriptions given X 1, 20:08 Patient left the ED. jw7 Signatures: Dispatcher [employer] EDMS Darrell Wilson PA PA cp Garcia, Rubi rg4 Anisa Cantor RN RN ap3 Suyapa Zee RN TRI jw7 Ani Woods RN RN nj1 Corrections: (The following items were deleted from the chart) 17:15 17:12 Pulse 83bpm; Resp 18bpm; Pulse Ox 99%; Temp 99F Oral; 136.08 kg; Height 5 ft. 11 nj1 in.; BMI: 41.8; Pain 310, Adult; nj1
--- NOTE | 2023-03-22 19:31 | EDPHYS ---
Physician Documentation [facility] Name: Km Correa Age: 22 yrs Sex: Male : 2000 Arrival Date: 03/22/2023 Time: 17:05 Bed 20 Private MD: ED Physician Robert Romero HPI: 03/22 17:33 This 22 yrs old Male presents to ER via Ambulatory with complaints of Chest cp Pain. 17:33 The patient or guardian reports chest pain that is located primarily in the anterior cp chest wall, left. 17:33 The pain does not radiate. Associated signs and symptoms: Pertinent negatives: cp abdominal pain, cough, lower extremity pain, lower extremity swelling, palpitations, shortness of breath, syncope. The chest pain is described as intermittent, worse with movement of upper body. Severity of pain: in the emergency department the pain has improved moderately. Historical: - Allergies: 17:14 No Known Allergies; nj1 - PMHx: 17:14 Migraine; nj1 - PSHx: 17:14 None; nj1 - Immunization history:: Client reports having NOT received the Covid vaccine. - Social history:: Smoking status: Reported history of juuling and/or vaping. ROS: 17:35 Cardiovascular: Positive for chest pain, Negative for edema, palpitations, cp 17:35 Respiratory: Negative for cough, shortness of breath, wheezing, cp 17:35 Abdomen/GI: Negative for abdominal pain, vomiting, diarrhea, constipation, 17:35 Constitutional: Negative for body aches, chills, fever, poor PO intake, cp 17:35 Eyes: Negative for injury, pain, redness, and discharge, cp 17:35 ENT: Negative for drainage from ear(s), ear pain, sore throat, difficulty swallowing, difficulty handling secretions, 17:35 Neck: Negative for pain with movement, pain at rest, stiffness, 17:35 Back: Negative for radiated pain, 17:35 Neuro: Negative for altered mental status, dizziness, headache, weakness, 17:35 All other systems are negative, Exam: 17:40 Constitutional: The patient appears in no acute distress, alert, awake, cp non-diaphoretic, non-toxic, well developed, well nourished, obese, 17:40 Head/Face: Normocephalic, atraumatic. cp 17:40 Eyes: Periorbital structures: appear normal, Conjunctiva: normal, no exudate, no injection, Sclera: no appreciated abnormality, Lids and lashes: appear normal, bilaterally, 17:40 ENT: External ear(s): are unremarkable, Nose: is normal, Mouth: Lips: moist, Oral mucosa: pink and intact, moist, Posterior pharynx: is normal, airway is patent, no erythema, no exudate, 17:40 Neck: ROM/movement: is normal, is supple, without pain, no range of motions limitations, 17:40 Chest/axilla: Inspection: normal, Palpation: is normal, no crepitus, no tenderness, 17:40 Cardiovascular: Rate: normal, Rhythm: regular, Heart sounds: murmur, not appreciated, Edema: is not appreciated, JVD: is not appreciated, 17:40 Respiratory: the patient does not display signs of respiratory distress, Respirations: normal, no use of accessory muscles, no retractions, labored breathing, is not present, Breath sounds: are clear throughout, no decreased breath sounds, no stridor, no wheezing, 17:40 Abdomen/GI: Inspection: abdomen appears normal, Bowel sounds: active, all quadrants, Palpation: abdomen is soft and non-tender, in all quadrants, 17:40 Back: pain, is absent, ROM is normal, 17:40 Musculoskeletal/extremity: DVT Exam: No signs of deep vein thrombosis. 17:40 Neuro: Orientation: to person, place \T\ time. Mentation: is normal, Motor: moves all fours, strength is normal, Sensation: is normal, Vital Signs: 17:12 BP 122 / 49; Pulse 83; Resp 18; Temp 99(O); Pulse Ox 99% ; Weight 136.08 kg; Height 5 nj1 ft. 11 in. ; Pain 3/10; 18:51 BP 124 / 48; Pulse 71; Pulse Ox 100% on R/A; ap3 19:30 BP 124 / 62; Pulse 73; Resp 16 S; Pulse Ox 100% on R/A; jw7 17:12 Body Mass Index 41.84 (136.08 kg, 180.34 cm) nj 17:12 Pain Scale: Adult [facility] MDM: 17:23 Patient medically screened. cp 18:00 Differential diagnosis: abnormal EKG, acute myocardial infarction, costochondritis, cp pericarditis, pleurisy, pneumonia, pneumothorax, pulmonary embolus. 19:30 Data reviewed: vital signs, nurses notes, lab test result(s), EKG, radiologic studies, cp plain films. 19:30 I considered the following discharge prescriptions or medication management in the emergency department Medications were administered in the Emergency Department. See MAR. Test considered but Not performed: CT: chest. Counseling: I had a detailed discussion with the patient and/or guardian regarding the historical points, exam findings, and any diagnostic results supporting the discharge/admit diagnosis, lab results, radiology results, the need for outpatient follow up, a family practitioner, to return to the emergency department if symptoms worsen or persist or if there are any questions or concerns that arise at home. 03/22 17:28 Order name: Basic Metabolic Panel; Complete Time: 19:00 03/22 19:01 Interpretation: Normal except. 03/22 17:28 Order name: CBC with Diff; Complete Time: 19:00 03/22 17:28 Order name: LFT's; Complete Time: 19:00 03/22 19:01 Interpretation: Normal except: AST 11; GLOB 3.8; A/G 0.9. 03/22 17:28 Order name: Magnesium; Complete Time: 19:00 03/22 17:28 Order name: PT-INR; Complete Time: 19:00 03/22 17:28 Order name: Troponin HS; Complete Time: 19:00 03/22 19:01 Interpretation: Reviewed. 03/22 17:28 Order name: D-Dimer; Complete Time: 19:00 03/22 19:01 Interpretation: Reviewed. 03/22 17:28 Order name: XRAY Chest (1 view); Complete Time: 19:00 03/22 17:28 Order name: EKG; Complete Time: 17:29 03/22 17:28 Order name: Cardiac monitoring; Complete Time: 17:35 03/22 17:28 Order name: EKG - Nurse/Tech; Complete Time: 17:53 03/22 17:28 Order name: IV Saline Lock; Complete Time: 17:35 03/22 17:28 Order name: Labs collected and sent; Complete Time: 17:35 03/22 17:28 Order name: O2 Per Protocol; Complete Time: 17:35 cp 03/22 17:28 Order name: O2 Sat Monitoring; Complete Time: 17:35 cp Administered Medications: 19:15 Drug: Ketorolac IVP 15 mg IVP once Route: IVP; Site: right antecubital; jw7 20:06 Follow up: Response: No adverse reaction; Marked relief of symptoms jw7 Disposition Summary: 03/22/23 19:30 Discharge Ordered Notes: Location: Home cp Problem: new cp Symptoms: have improved cp Condition: Stable cp Diagnosis - Chest pain, unspecified cp Followup: cp - With: Private Physician - When: 2 - 3 days - Reason: Recheck today's complaints Discharge Instructions: - Discharge Summary Sheet cp - Nonspecific Chest Pain, Adult cp Forms: - Medication Reconciliation Form cp - Thank You Letter cp - Antibiotic Education cp - Prescription Opioid Use cp - Patient Portal Instructions cp - Leadership Thank You Letter cp Prescriptions: - Diclofenac Sodium 75 mg Oral Tablet Sustained Release - take 1 tablet ORAL route 2 times per day; 30 tablet; Refills: 0, Product cp Selection Permitted Addendum: 03/23/2023 22:01 I was immediately available on-site in the Emergency Department for consultation in the m s3 care of the patient. Signatures: Dispatcher [employer] EDMS Darrell Wilson PA PA cp Sims, Marcus, DO DO ms3 Suyapa Zee RN RN jw7 Ani Woods RN RN nj1
[2023-03-22 20:39] VITALS: TEMP 99
[2023-03-22 20:45] VITALS: O2SAT 100
[2023-03-22 20:46] VITALS: BP 124/62
--- NOTE | 2023-03-23 11:20 | EKG ---
Test Date: 2023-03-22 Test Time: 17:50:08 Pump Stitcher: ALP MEASUREMENT RESULTS: Intervals: Rate: 80 SC: 148 QRSD: 98 QT: 368 QTc: 424 [place]: P: 33 SC: 148 QRS: 16 T: 14 INTERPRETIVE STATEMENTS: Normal sinus rhythm Normal ECG Compared to ECG 02/11/2021 07:33:38 Sinus bradycardia no longer present Sinus arrhythmia no longer present Electronically Signed On 03-23-23 11:18:04 CDT by Jordi Negrete
== END 2023-03-22 20:08 | disposition home or self-care (01) ==
LOC: ER 17:05
DX: R07.89 Other chest pain (principal)
CPT/HCPCS: 36415; 71045; 80048; 80076; 83735; 84484; 85025; 85379; 85610; 93005; 96374; 99285